=== PATIENT | female | born 1990 | race American Indian/Alaskan Native ===

== ENCOUNTER 2017-09-12 19:27 | Outpatient (CLI) | payer MEDICAID ==
[2017-09-12 20:07] VITALS: BP 115/58
[2017-09-12] MEDS ORDERED: LACTATED RINGERS 1,000 ML IV ONE (20:11)
[2017-09-12 20:49] LABS: Bilirubin,Urine NEG (Negative); Blood,Urine NEG (Negative); Color,Urine Yellow (Yellow); Mucus,Urine FEW /HPF; Protein,Urine <15 mg/dL mg/dL (Negative)
[2017-09-12] MEDS ORDERED: BRETHINE SUB-Q SCH (21:00)
[2017-09-12] MEDS ORDERED: VISTARIL PO PRN (23:36)
== END 2017-09-13 00:04 | disposition home or self-care (01) ==
LOC: TRG 19:27
PROVIDERS: ATTEND Obstetrics & Gynecology
DX: O47.03 False labor before 37 completed weeks of gestation, third trimester (principal); Z3A.33 33 weeks gestation of pregnancy
CPT/HCPCS: 36415; 81001; 82731; J7120; Q0177

== ENCOUNTER 2017-10-20 22:06 | Inpatient (IN) | payer MEDICAID ==
[2017-10-20] MEDS ORDERED: MINERAL OIL PO PRN (22:27)
[2017-10-20] MEDS ORDERED: XYLOCAINE 2% INFILTRATI ONE (22:27)
[2017-10-20] MEDS ORDERED: ZOFRAN IV PRN (22:27)
[2017-10-20] MEDS ORDERED: BRETHINE IVP PRN (22:27)
[2017-10-20] MEDS ORDERED: SUBLIMAZE IV PRN (22:27)
--- NOTE | 2017-10-20 22:27 | History and Physical Report ---
History of Present Illness Date of examination: 10/20/17 Chief complaint: Labor History of present illness: EDC Calculations by LMP: 10/25/2017 Past History : 3 Term Births: 2 Living Children: 2 Para: 2 Mult. Births: 0 Prev : 0 Aborta: 0 Elect. Ab: 0 Spont. Ab: 0 Ectopics: 0 # 1 Delivery date: 2008 Weeks Gestation: 39 labor: no Delivery type: Anesthesia type: epidural Delivery location: [place] Sex: Female weight: 5#12 Comments: incarcerated # 2 Delivery date: 2016 Weeks Gestation: term labor: no Delivery type: Delivery location: [facility] – [place] Sex: Female weight: 5#10 Comments: left hand webbed fingers, cleft lip, amniotic bands - right leg, missing 2 digits on right hand Past Medical History: Negative Past Medical History Past Surgical History: negative Past Medical History Anesthesia Complications: negative Anemia: negative Autoimmune Disorder: negative Bleeding Disorder: negative Blood Transfusions: negative Breast Disease: negative Diabetes: negative Heart Disease: negative Hypertension: negative Hepatitis/Liver Disease: negative Kidney Disease/UTI: negative Neurologic/Epilepsy/Migraines: negative Phlebitis/Varicosities: negative Psychiatric: negative Pulmonary Disease/Asthma: negative Thyroid Disease: negative Hospitalizations: negative 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 of genital herpes: no Partner hx. of genital herpes: no Rash, Viral, or Febrile illness since last LMP? no Varicella/Chicken Pox Status: Previous Disease Genetic History Congenital Heart Defect: Mom: no Dad: no Humberto Disease: Mom: no Dad: no Thalassemia Mom: no Dad: no Neural Tube Defect Mom: no Dad: no Down's Syndrome Mom: no Dad: no Chris-Sachs Mom: no Dad: no Sickle Cell Disease/Trait Mom: no Dad: no Hemophilia Mom: no Dad: no Muscular Dystrophy Mom: no Dad: no Cystic Fibrosis Mom: no Dad: no [place] Chorea Mom: no Dad: no Mental Retardation Mom: no Dad: no Fragile X Mom: no Dad: no Other Genetic/Chromosomal Disorder Mom: no Dad: no Child w/other defect Mom: yes Dad: no Comments: see del info 2016 Enviromental Exposures Xray Exposure: no Medication, drug, or alcohol use since LMP: no Chemical/Other Exposure: no Exposure to Cat Liter: no Hx of Parvovirus (Fifth Disease): no Occupational Exposure to Children: none Active Medications (reviewed today): None Current Allergies (reviewed today): No known allergies Past History Past Medical History: other (see HPI) Past Surgical History: other (see HPI) 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) Family/Genetic History: other (see HPI) - Obstetrical History Expected Date of Delivery: 10/25/17 Actual Gestation: 39 Week(s) 2 Day(s) : 3 Para: 2 Hx # Term Pregnancies: 2 Number of Pregnancies: 0 Spontaneous Abortions: 0 Induced : 0 Number of Living Children: 2 Medications and Allergies Allergies Allergy/AdvReac Type Severity Reaction Status Date / Time No Known Allergies Allergy Unverified 09/12/17 20:11 Review of Systems All systems: negative - Physical Exam Breasts: Positive: normal Cardiovascular: Regular rate Lungs: Positive: Clear to auscultation, Normal air movement Abdomen: Positive: normal appearance, soft Genitourinary (Female): Positive: normal external genitalia, normal perenium Vulva: both: normal Vagina: Positive: normal moisture Uterus: Positive: normal size, normal contour Anus/Rectum: Positive: normal perianal skin Extremities: Positive: normal - Obstetrical FHR: auscultation normal Uterine Contraction Monitor Mode: External Cervical Dilatation: 7 Uterine Contraction Pattern: Regular Uterine Tone Measurement Phase: Contraction Uterine Contraction Intensity: Moderate Results All other labs normal. Assessment and Plan 27y/o admitted to labor and delivery in active labor 7cms, GBS neg, RH neg. Admission orders in EMR. Anticipate . - Patient Problems (1) Rh negative status during Current Visit: Yes Status: Acute Qualifiers: Trimester: third trimester Qualified Code(s): O09.893 - Supervision of other high risk pregnancies, third trimester; Z67.91 - Unspecified blood type, Rh negative (2) 39 weeks gestation of Current Visit: Yes Status: Acute (3) Active labor at term Current Visit: Yes Status: Acute
[2017-10-20] MEDS: LACTATED RINGERS 1,000 ML IV SCH ×2 (22:50→23:17)
[2017-10-20 22:52] LABS: Hematocrit 31.9 % (30.3-42.9); Hemoglobin 10.5 gm/dl (10.1-14.3); Mean Corpuscular HGB Conc 33 % (30-34); Mean Corpuscular Hemoglobin 27 pg (28-32); Mean Corpuscular Volume 82 fl (79-97); Platelet Count 320 K/mm3 (140-440); Red Blood Count 3.91 M/mm3 (3.65-5.03); Red Cell Distribution Width 15.4 % (13.2-15.2)
[2017-10-20] MEDS ORDERED: PITOCin/NS 20 UNIT/1000ML DRIP 20 UNITS/1,000 ML BAG IV SCH (23:00)
[2017-10-20] MEDS ORDERED: fentaNYL-BUPIV 2 MCG/ML-0.125% 200 MCG/100 ML BAG EPIDURAL SCH (23:45)
[2017-10-20] MEDS ORDERED: PITOCin/NS 30 UNIT/500ML 30 UNITS/500 ML BAG IV SCH (23:45)
[2017-10-20] MEDS ORDERED: NARCAN 2 MG/2 ML IV PRN (23:46)
--- NOTE | 2017-10-21 01:04 | Procedure Note ---
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 3 vessel cord clamped and cut. Cord blood collected. Placenta del intact and complete. Pit to IVF. Fundus firm, lochia small. no lacerations to repair. EBL 100, apgars 9/9, weight 7#7oz. Mother and remain LDR stable. - Infant A at 1 minute: 9 at 5 minutes: 9 Gender: Female (7#7oz)
[2017-10-21] MEDS ORDERED: TUCKS PAD TP PRN (02:41)
[2017-10-21] MEDS ORDERED: BENADRYL PO PRN (02:41)
[2017-10-21] MEDS ORDERED: SODIUM CHLORIDE FLUSH SYRINGE 10 ML IV PRN (02:41)
[2017-10-21] MEDS ORDERED: TYLENOL PO PRN (02:41)
[2017-10-21] MEDS ORDERED: DULCOLAX PR PRN (02:41)
[2017-10-21] MEDS ORDERED: PHENERGAN PO PRN (02:41)
[2017-10-21] MEDS ORDERED: PITOCin/NS 20 UNIT/1000ML DRIP 20 UNITS/1,000 ML BAG IV SCH (02:41)
[2017-10-21] MEDS ORDERED: LANSINOH TP PRN (02:41)
[2017-10-21] MEDS ORDERED: MILK OF MAGNESIA PO PRN (02:41)
[2017-10-21] MEDS ORDERED: NORCO 5/325 PO ONE (03:00)
[2017-10-21] MEDS: MOTRIN PO SCH ×3 (03:06→15:40)
--- NOTE | 2017-10-21 07:08 | Progress Note ---
Assessment and Plan - Patient Problems (1) (normal spontaneous vaginal delivery) Onset Date: ~10/21/17 Current Visit: Yes Status: Acute Plan to address problem: Continue pathway H&H @ 12hours post delivery Subjective - Subjective Date of service: 10/21/17 (no c/o voiced) Principal diagnosis: <12hours post delivery Patient reports: appetite normal, voiding normally, pain well controlled, ambulating normally : doing well Objective - Vital Signs Latest vital signs: Vital Signs Temp Pulse Resp BP BP Pulse Ox 10/21/17 04:10 98.7 F 68 18 104/67 10/21/17 02:45 98.6 F 69 18 118/68 10/21/17 02:17 64 100 10/21/17 02:14 71 135/73 10/21/17 02:12 65 100 10/21/17 02:07 75 99 10/21/17 02:02 70 100 10/21/17 01:59 69 136/62 10/21/17 01:57 76 100 10/21/17 01:56 69 92 10/21/17 01:52 68 100 10/21/17 01:47 71 99 10/21/17 01:44 74 150/68 10/21/17 01:42 70 100 10/21/17 01:37 65 100 10/21/17 01:32 74 100 10/21/17 01:29 73 149/66 10/21/17 01:27 72 100 10/21/17 01:22 76 100 10/21/17 01:17 81 100 10/21/17 00:57 78 100 10/21/17 00:52 79 100 10/21/17 00:47 79 100 10/21/17 00:45 72 139/65 10/21/17 00:42 73 100 10/21/17 00:37 70 100 10/21/17 00:32 77 100 10/21/17 00:27 70 100 10/21/17 00:25 68 137/66 10/21/17 00:22 74 100 10/21/17 00:19 82 133/68 10/21/17 00:17 71 100 10/21/17 00:14 81 124/56 10/21/17 00:12 82 100 10/21/17 00:09 80 112/59 10/21/17 00:07 65 131/61 100 10/21/17 00:02 72 100 10/20/17 23:59 89 123/77 10/20/17 23:57 76 140/66 100 10/20/17 23:55 71 139/63 10/20/17 23:53 65 144/85 10/20/17 23:52 65 100 10/20/17 23:50 75 150/88 10/20/17 23:47 69 149/69 100 10/20/17 23:45 67 144/75 10/20/17 23:43 81 148/78 10/20/17 23:42 82 100 10/20/17 23:41 80 140/69 10/20/17 23:37 70 100 10/20/17 23:35 86 144/63 10/20/17 23:33 77 148/66 10/20/17 23:32 79 100 10/20/17 23:31 75 151/94 10/20/17 23:28 85 146/94 10/20/17 23:27 69 100 10/20/17 23:22 72 100 10/20/17 23:17 87 98 10/20/17 23:12 79 100 10/20/17 23:07 66 100 10/20/17 23:02 72 100 10/20/17 23:00 63 141/78 10/20/17 22:57 70 100 10/20/17 22:51 98 F 24 Intake and Output 10/20/17 10/21/17 10/21/17 22:59 06:59 14:59 Intake Total 56.25 Balance 56.25 Intake: IV 56.25 Lactated Ringers 1,000 ml 56.25 @ 125 mls/hr IV DIRECT BELEM Rx#:[id number] Other: Weight 284 lb Estimated Blood Loss 100 - Exam Breasts: Present: normal Cardiovascular: Present: Regular rate Lungs: Present: Normal air movement Abdomen: Present: normal appearance, soft, normal bowel sounds Vulva: both: normal Uterus: Present: normal, firm, fundal height at umbilicus Extremities: Present: normal Incision: Present: normal, dry, intact - Labs Labs: Abnormal lab results 10/20/17 Range/Units 22:25 MCH 27 L (28-32) pg RDW 15.4 H (13.2-15.2) %
[2017-10-21] MEDS: PRENATAL VITAMIN PO SCH (11:02)
[2017-10-21] MEDS: FEOSOL PO SCH ×2 (11:02→22:00)
[2017-10-21] MEDS: COLACE PO SCH ×2 (11:02→22:00)
[2017-10-21 13:56] LABS: Hematocrit 28.3 % (30.3-42.9); Hemoglobin 9.3 gm/dl (10.1-14.3)
[2017-10-22] MEDS: MOTRIN PO SCH ×5 (03:57→12:00)
[2017-10-22] MEDS ORDERED: BOOSTRIX IM ONE (06:00)
--- NOTE | 2017-10-22 06:59 | Discharge Summary ---
Providers - Providers Date of Admission: 10/20/17 22:25 Date of discharge: 10/22/17 (pt agrees with d/c) Attending physician: TINO BECKHAM Primary care physician: TINO BECKHAM Hospitalization Reason for admission: active labor Delivery: Episiotomy: none Laceration: none Incision: normal Other procedures: none complications: none Discharge diagnosis: IUP at term delivered baby: female Hospital course: uncomplicated vaginal delivery Pt A&O X 3 Resting in bed tending to NB VSS FF below umb Lochia small perineum intact H&H 11/27 Asymptomatic anemia Doing well s/p vag delivery P: d/c today instructions given RTO 4 weeks PP care. Condition at discharge: Good Disposition: DC-01 TO HOME OR SELFCARE - Discharge Diagnoses (1) (normal spontaneous vaginal delivery) Status: Acute Comment: RTO 4 weeks PP care Plan - Provider Discharge Summary Activity: routine, no sex for 6 weeks, no heavy lifting 4 weeks, no strenuous exercise Diet: routine Instructions: routine Additional instructions: [] Smoking cessation referral if applicable(refer to patient education folder for contact #) [] Refer to [facility] Booklet Call your doctor immediately for: * Fever > 100.5 * Heavy vaginal bleeding ( >1 pad per hour) * Severe persistent headache * Shortness of breath * Reddened, hot, painful area to leg or breast * Drainage or odor from incision. * Keep incision clean and dry at all times and follow doctor's instructions regarding bathing/showering - Follow up plan Follow up: TINO BECKHAM MD [Primary Care Provider] - 11/20/17 (Congratulations! Please call [phone] to schedule your postoperative visit in one week. Continue taking your vitamins and use over the counter ibuprofen for cramping postdelivery. Call with concerns. )
[2017-10-22] MEDS: COLACE PO SCH (11:10)
[2017-10-22] MEDS: FEOSOL PO SCH (11:11)
[2017-10-22] MEDS: PRENATAL VITAMIN PO SCH (11:11)
[2017-10-22 16:24] VITALS: BP 124/77
== END 2017-10-22 15:40 | disposition home or self-care (01) | DRG 775 ==
LOC: TRG 22:06 → LD 22:25 → OB 10-21 02:15
PROVIDERS: ADMIT Obstetrics & Gynecology; ATTEND Obstetrics & Gynecology
PROC: 10E0XZZ Delivery of Products of Conception, External Approach (ICD-10-PCS; principal; 2017-10-21)
PROC: 3E0334Z Introduction of Serum, Toxoid and Vaccine into Peripheral Vein, Percutaneous Approach (ICD-10-PCS; 2017-10-21)
PROC: 3E0R3BZ Introduction of Anesthetic Agent into Spinal Canal, Percutaneous Approach (ICD-10-PCS; 2017-10-21)
PROC: 00HU33Z Insertion of Infusion Device into Spinal Canal, Percutaneous Approach (ICD-10-PCS; 2017-10-21)
PROC: 3E0234Z Introduction of Serum, Toxoid and Vaccine into Muscle, Percutaneous Approach (ICD-10-PCS; 2017-10-22)
DX: O26.893 Other specified pregnancy related conditions, third trimester (principal); Z3A.39 39 weeks gestation of pregnancy; Z37.0 Single live birth; Z23 Encounter for immunization; D64.9 Anemia, unspecified; O99.02 Anemia complicating childbirth; Z67.41 Type O blood, Rh negative
CPT/HCPCS: 36415; 85014; 85018; 85027; 85461; 86592; 86850; 86900; 86901; 99211; G0463; J2590; J2790; J3010; J7120

== ENCOUNTER 2020-03-12 04:41 | Inpatient (IN) | payer MEDICAID ==
[2020-03-12] MEDS ORDERED: TERBUTALINE 1 MG/1 ML INJ SUB-Q PRN (05:24)
[2020-03-12] MEDS ORDERED: MINERAL OIL 30 ML ORAL LIQD PO PRN (05:24)
[2020-03-12] MEDS ORDERED: ePHEDrine SULFATE 50 MG/1 ML INJ IV PRN ×2 (05:24→06:49)
[2020-03-12] MEDS ORDERED: fentaNYL 100 MCG/2 ML INJ IV PRN (05:24)
[2020-03-12] MEDS ORDERED: LIDOCAINE (2%) 20 MG/1 ML VIAL 20 ML MDV INFILTRATI ONE (05:24)
--- NOTE | 2020-03-12 05:24 | History and Physical Report ---
History of Present Illness Date of examination: 03/12/20 Date of admission: 03/12/20 Chief complaint: contractions History of present illness: Pt presents c/o contractions that are 1 to 7 mn apart. Noted to be 4-5/80/-3 as per triage nurse. Will admit for labor. RH negative s/p rhogam and GBS negative. 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 no EDC Calculations LMP: 03/18/2020 Gestational Age: weeks Past History : 4 Term Births: 3 Premature Births: 0 Living Children: 3 Para: 3 Mult. Births: 0 Prev : 0 Prev. attempt? 0 Aborta: 0 Elect. Ab: 0 Spont. Ab: 0 Ectopics: 0 # 1 Delivery date: 2008 Weeks Gestation: 39 labor: no Delivery type: Hours of labor: 4 Anesthesia type: epidural Delivery location: [facility] [place] Sex: Female weight: 5#12 Comments: incarcerated # 2 Delivery date: 2016 Weeks Gestation: term labor: no Delivery type: Hours of labor: 4 Delivery location: [facility] [place] Infant Sex: Female weight: 5#10 Comments: left hand webbed fingers, cleft lip, amniotic bands - right leg, missing 2 digits on right hand # 3 Delivery date: 10/21/2017 Weeks Gestation: 39+3 Delivery type: Vaginal Hours of labor: 3 Anesthesia type: epidural Delivery location: [facility] Infant Sex: female weight: 7.44 Comments: none Past Medical History: Situational Depression Past Surgical History: Reviewed history from 05/27/2017 and no changes required: negative Risk Factors: Smoked Tobacco Use: Current every day smoker Cigarettes: Yes Counseled to quit/cut down: yes Drug use: no HIV high-risk behavior: low risk Caffeine use: 1 drinks per day Alcohol use: no Exercise: yes Times per week: 2 Type of Exercise: aerobics Seatbelt use: 100 % Sun Exposure: occasionally Family History Risk Factors: Family History of NE in females < 65 years old: no Family History of NE in males < 55 years old: no Past Medical History Anesthesia Complications: negative Anemia: negative Autoimmune Disorder: negative Bleeding Disorder: negative Blood Transfusions: negative Breast Disease: negative Diabetes: negative Heart Disease: negative Hypertension: negative Hepatitis/Liver Disease: negative Kidney Disease/UTI: negative Neurologic/Epilepsy/Migraines: negative Phlebitis/Varicosities: negative Psychiatric: negative Pulmonary Disease/Asthma: negative Thyroid Disease: negative Hospitalizations: positive, child x's 3 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 Patient has been counseled to quit. Infection History Hx of STD: chlamydia HIV Risk Eval: low risk Hepatitis B Risk Eval: low risk Personal hx. of genital herpes: no Partner hx. of genital herpes: no Rash, Viral, or Febrile illness since last LMP? no Varicella/Chicken Pox Status: Previous Disease TB Risk: no Genetic History Congenital Heart Defect: Mom: no Dad: unknown Humberto Disease: Mom: no Dad: unknown Thalassemia Mom: no Dad: unknown Neural Tube Defect Mom: no Dad: unknown Down's Syndrome Mom: no Dad: unknown Chris-Sachs Mom: no Dad: unknown Sickle Cell Disease/Trait Mom: yes Dad: unknown Comments: nephew Hemophilia Mom: no Dad: unknown Muscular Dystrophy Mom: no Dad: unknown Cystic Fibrosis Mom: no Dad: unknown [place] Chorea Mom: no Dad: unknown Mental Retardation Mom: no Dad: unknown Fragile X Mom: no Dad: unknown Other Genetic/Chromosomal Disorder Mom: no Dad: unknown Child w/other defect Mom: no Dad: unknown Enviromental Exposures Enviromental Exposures Reviewed Xray Exposure: no Medication, drug, or alcohol use since LMP: no Chemical/Other Exposure: no Exposure to Cat Liter: no Hx of Parvovirus (Fifth Disease): no Occupational Exposure to Children: none Current Allergies: No known allergies Past History Past Medical History: other (see hpi) Past Surgical History: other (see hpi) 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) Social history: other (see hpi) - Obstetrical History Expected Date of Delivery: 03/18/20 Actual Gestation: 39 Week(s) 2 Day(s) : 4 Para: 3 Number of Living Children: 3 Medications and Allergies Allergies Allergy/AdvReac Type Severity Reaction Status Date / Time No Known Allergies Allergy Unverified 09/12/17 20:11 Home Medications Medication Instructions Recorded Confirmed Last Taken Type Vitamin 1 tab PO DAILY 03/12/20 03/12/20 03/05/20 09:00 History 1 Ibuprofen [Motrin 800 MG tab] 800 mg PO Q8HR PRN #30 tablet 03/13/20 Unknown Rx - Vital Signs Vital signs: Vital Signs Temp Pulse Resp BP 99.3 F 98 H 18 139/84 03/12/20 04:59 03/12/20 04:59 03/12/20 04:59 03/12/20 04:59 Temp Pulse Resp BP Pulse Ox 99.3 F 98 H 18 139/84 03/12/20 04:59 03/12/20 04:59 03/12/20 04:59 03/12/20 04:59 Results Result Diagrams: 03/12/20 19:24 All other labs normal. Assessment and Plan - Patient Problems (1) 39 weeks gestation of Current Visit: No Status: Acute (2) Active labor at term Current Visit: No Status: Acute Plan to address problem: -admit -desires epidural -anticipate (3) Rh negative status during Current Visit: No Status: Acute Qualifiers:
[2020-03-12] MEDS ORDERED: LACTATED RINGERS 1,000 ML IV SCH (05:30)
[2020-03-12 06:01] LABS: Hematocrit 29.3 % (30.3-42.9); Hemoglobin 9.8 gm/dl (10.1-14.3); Mean Corpuscular HGB Conc 33 % (30-34); Mean Corpuscular Volume 80 fl (79-97); Platelet Count 284 K/mm3 (140-440); Red Blood Count 3.68 M/mm3 (3.65-5.03)
[2020-03-12] MEDS ORDERED: NALOXONE 2 MG/2 ML INJ IV PRN (06:49)
--- NOTE | 2020-03-12 06:49 | Anesthesia Consultation ---
Anesthesia Consult and Med Hx Date of service: 03/12/20 - Airway Anesthetic Teeth Evaluation: Good ROM Head & Neck: Adequate Mental/Hyoid Distance: Adequate Mallampati Class: Class II Intubation Access Assessment: Probably Good - Pulmonary Exam CTA: Yes - Cardiac Exam Cardiac Exam: RRR - Pre-Operative Health Status ASA Pre-Surgery Classification: ASA3 Proposed Anesthetic Plan: Epidural - Pulmonary Hx Smoking: Yes Hx Asthma: No COPD: No Hx Pneumonia: No - Cardiovascular System Hx Hypertension: No - Central Nervous System Hx Seizures: No Hx Psychiatric Problems: No - Endocrine Hx Renal Disease: No Hx End Stage Renal Disease: No Hx Hypothyroidism: No Hx Hyperthyroidism: No - Hematic Hx Anemia: No Hx Sickle Cell Disease: No - Other Systems Hx Alcohol Use: Yes Hx Obesity: Yes
--- NOTE | 2020-03-12 06:51 | Progress Note ---
Labor Epidural - Labor Epidural Start Time: 06:35 Stop Time: 06:40 Performed by:: ZARA VILLA Procedure: Patient is requesting epidural for labor pain. H&P, and labs reviewed. Procedure explained, questions answered, consent obtained. Patient in sitting position with blood pressure cuff and pulse ox on and working. Timeout performed immediately before start of procedure. Sterile betadine prep/drape. 3 mL 1% lidocaine skin wheal at L[3]-L[4]. 18-gauge Ease My Sell epidural needle advanced to [id number] with saline at [7] cm. Epidural dexmedetomidine [30] mcg administered. Epidural catheter advanced to [12] cm, negative aspiration for blood and csf, negative test dose 3 ml 1.5% lidocaine with epinephrine. Sterile steri-strips and tegaderm applied, followed by tape reinforcement. Patient tolerated procedure well.
[2020-03-12] MEDS ORDERED: OXYTOCIN DRIP 30,000 MILLIUNITS/500 ML BAG IV ONE (06:57)
[2020-03-12] MEDS ORDERED: fentaNYL-BUPIV 2 MCG/ML-0.125% 200 MCG/100 ML BAG EPIDURAL SCH (07:00)
--- NOTE | 2020-03-12 07:16 | Procedure Note ---
OB Delivery Note - Delivery Date of Delivery: 03/12/20 [place]: KINA JASON Estimated blood loss: 100cc - Vaginal Delivery presentation: vertex Delivery position: OA Intrapartum events: none Delivery induction: none Delivery monitor: external FHT, external uterine Route of delivery: Delivery placenta: spontaneous Delivery cord: 3 umbilical vessels Episiotomy: none Delivery laceration: none Anesthesia: epidural Delivery comments: of viable female over intact perineum. Infant to mothers chest for skin to skin. Cord cut and clamped by FOC after cessation of pulse. Spontaneous delivery of placenta, complete, intact, 3 vessels noted. Fundus firm, minimal bleeding noted. Perineum and vagina inspected, no lacerations noted. Apgars 8,9. Weight 6-10. EBL 100 ml. Mother and infant left in stable condition in care of RN. Sponges and instruments counted and correct X2.
[2020-03-12] MEDS ORDERED: miSOPROStol 100 MCG TAB PR PRN (07:23)
[2020-03-12] MEDS ORDERED: LOPERAMIDE 2 MG CAP PO PRN (07:23)
[2020-03-12] MEDS ORDERED: BENZOCAINE/MENTHOL 20/0.5% TOP SPRAY 56 GM TP PRN (07:23)
[2020-03-12] MEDS ORDERED: CARBOPROST TROMETHAMINE 250 MCG/1 ML INJ IM PRN (07:23)
[2020-03-12] MEDS ORDERED: IBUPROFEN 600 MG TAB PO SCH (08:00)
[2020-03-12] MEDS ORDERED: ONDANSETRON 4 MG/2 ML INJ IV PRN (08:00)
[2020-03-12] MEDS ORDERED: LANOLIN/ZINC/DIMETHICONE (LANSINOH) 7 GM TP PRN ×2 (08:00)
[2020-03-12] MEDS ORDERED: OXYTOCIN DRIP 30 UNITS/500 ML BAG IV SCH (08:00)
[2020-03-12] MEDS ORDERED: PROMETHAZINE 25 MG TAB PO PRN (08:00)
[2020-03-12] MEDS ORDERED: ACETAMINOPHEN 325 MG TAB PO PRN (08:00)
[2020-03-12] MEDS ORDERED: WITCH HAZEL/ GLYCERIN PAD TP PRN (08:00)
[2020-03-12] MEDS ORDERED: METHYLERGONOVINE MALEATE 0.2 MG/ML VIAL IM PRN (08:00)
[2020-03-12] MEDS ORDERED: diphenhydrAMINE 25 MG CAP PO PRN (08:00)
[2020-03-12] MEDS ORDERED: PROMETHAZINE 25 MG RECT SUPP PR PRN (08:00)
[2020-03-12] MEDS: IBUPROFEN 800 MG TAB PO SCH ×3 (10:10→22:51)
[2020-03-12] MEDS: DOCUSATE SODIUM 100 MG CAP PO SCH ×2 (10:10→22:52)
[2020-03-12] MEDS: PRENATAL VIT27-FE FUMARATE-FOLIC ACID VIT TAB PO SCH (10:10)
--- NOTE | 2020-03-12 13:43 | Post Anesthesia Evaluation ---
- Post Anesthesia Evaluation Patient Participated: Yes Airway Patent: Yes Stable Respiratory Function: Yes Nausea/Vomiting: No Temp > 96.8F: Yes Pain Manageable: Yes Adequeate Hydration: Yes Anesthesia Complications: No Block Receding Appropriately: Yes
[2020-03-12 19:44] LABS: Hematocrit 27.6 % (30.3-42.9); Hemoglobin 9.1 gm/dl (10.1-14.3)
[2020-03-12] MEDS ORDERED: MAGNESIUM HYDROXIDE (MOM) ORAL LIQD UDC PO PRN (22:00)
[2020-03-13] MEDS ORDERED: DIPHtheria,PERTUSSIS(ACELL),TETANUS VACCINE/PF 0.5 ML VIAL IM ONE (07:24)
--- NOTE | 2020-03-13 07:37 | Discharge Summary ---
Providers - Providers Date of Admission: 03/12/20 05:39 Date of discharge: 03/13/20 Attending physician: DOMENIC PABON Primary care physician: DOMENIC PABON Hospitalization Reason for admission: Labor Condition: Good Pertinent studies: H&H 9.1/27.6, asymptomatic anemia from acute blood loss Procedures: Hospital course: uncomplicated and course Disposition: DC-01 TO HOME OR SELFCARE - Discharge Diagnoses (1) (normal spontaneous vaginal delivery) Status: Acute Comment: RTO 4 weeks PP care (2) Rh negative, delivered, current hospitalization Status: Acute Core Measure Documentation - Palliative Care Palliative Care/ Comfort Measures: Not Applicable - Core Measures Any of the following diagnoses?: none Exam - Constitutional Vitals: Temp Pulse Resp BP Pulse Ox 98.7 F 74 18 114/78 98 03/13/20 00:00 03/13/20 00:00 03/13/20 00:00 03/13/20 00:00 03/12/20 21:41 General appearance: Present: no acute distress, well-nourished - EENT Eyes: Present: PERRL ENT: hearing intact, clear oral mucosa - Neck Neck: Present: supple, normal ROM - Respiratory Respiratory effort: normal Respiratory: bilateral: CTA - Cardiovascular Rhythm: regular Heart Sounds: Absent: rub, click - Extremities Extremities: No edema Peripheral Pulses: within normal limits - Abdominal General gastrointestinal: Present: soft, non-tender, non-distended, normal bowel sounds Female genitourinary: Present: normal - Integumentary Integumentary: Present: clear, warm, dry - Musculoskeletal Musculoskeletal: gait normal, strength equal bilaterally - Psychiatric Psychiatric: appropriate mood/affect, intact judgment & insight - Neurologic Neurologic: CNII-XII intact, moves all extremities - Additional findings Additional findings: bottle feeding, lochia scant, fundus firm Plan Activity: no restrictions Diet: regular Follow up with: DOMENIC PABON MD [Primary Care Provider] - 04/16/20 (Congratulations! Please call [phone] to schedule your visit in 4 weeks. Call for any questions or concerns.)
[2020-03-13] MEDS: DOCUSATE SODIUM 100 MG CAP PO SCH (09:47)
[2020-03-13] MEDS: IBUPROFEN 800 MG TAB PO SCH (09:47)
[2020-03-13] MEDS: PRENATAL VIT27-FE FUMARATE-FOLIC ACID VIT TAB PO SCH (09:48)
[2020-03-13 12:21] VITALS: BP 126/77
== END 2020-03-13 13:15 | disposition home or self-care (01) | DRG 775 ==
LOC: TRG 04:41 → APU 04:48 → TRG 05:24 → LD 05:39 → OB 09:13
PROVIDERS: ADMIT Obstetrics & Gynecology; ATTEND Obstetrics & Gynecology
PROC: 10E0XZZ Delivery of Products of Conception, External Approach (ICD-10-PCS; principal; 2020-03-12)
PROC: 3E0R3BZ Introduction of Anesthetic Agent into Spinal Canal, Percutaneous Approach (ICD-10-PCS; 2020-03-12)
PROC: 00HU33Z Insertion of Infusion Device into Spinal Canal, Percutaneous Approach (ICD-10-PCS; 2020-03-12)
DX: O80 Encounter for full-term uncomplicated delivery (principal); Z3A.39 39 weeks gestation of pregnancy; Z37.0 Single live birth; Z20.822 Contact with and (suspected) exposure to COVID-19
CPT/HCPCS: 36415; 85014; 85018; 85027; 86592; 86850; 86900; 86901; G0378; J3010; J7120; U0003